=== PATIENT | female | born 1945 | race Two or more races ===

== ENCOUNTER 2023-06-08 06:38 | Day surgery (SDC) | payer OTHER ==
[~2023-06-08] VITALS: Ht 167.6 cm; Wt 57.6 kg
[~2023-06-08 06:38] MED LIST: ALPRAZOLAM OD0.25 MG PO; BAYER THERAPY325 MG PO; FLUOXETINE20 MG/5 ML PO; RISPERDAL1 MG PO; ZOCOR20 MG PO
== END 2023-06-08 15:40 | disposition home or self-care (01) ==
LOC: CIR.AMB 06:38
PROVIDERS: ATTEND Surgery
DX: C50.212 Malignant neoplasm of upper-inner quadrant of left female breast (principal); Z20.822 Contact with and (suspected) exposure to COVID-19; E78.5 Hyperlipidemia, unspecified; F03.90 Unspecified dementia, unspecified severity, without behavioral disturbance, psychotic disturbance, mood disturbance, and anxiety
CPT/HCPCS: 19301; 19285; L8699